=== PATIENT | male | born 1990 | race Caucasian/White ===

== ENCOUNTER 2016-11-27 14:37 | Outpatient (CLI) | payer OTHER ==
[2015-05-24 15:25] VITALS: BP 114/72
[2016-11-27 14:58] LABS: BASOPHILS % 0.5 (0.0-1.5); EOSINOPHILS % 1.7 % (0.0-6.8); LYMPHOCYTES # 1.4 # k/uL (0.6-4.0); MONOCYTES # 0.2 # k/uL (0.0-0.9); MONOCYTES % 4.4 % (0.0-11.0); NEUTROPHILS # 3.6 # k/uL (1.4-7.7)
[2016-11-27 15:16] LABS: eGFR (African) > 60; eGFR (Non-African) > 60
== END 2016-11-27 14:47 ==
LOC: LAB 14:37
PROVIDERS: ATTEND Psychiatry & Neurology Psychiatry
DX: F41.1 Generalized anxiety disorder (principal)
CPT/HCPCS: 36415; 80053; 80061; 84439; 84443; 85025